=== PATIENT | female | born 1995 | race Two or more races ===

== ENCOUNTER 2022-07-31 12:47 | Outpatient (CLI) | payer OTHER | END 2022-07-31 14:00 | disposition home or self-care (01) | LOC: PRENATAL 12:47 | PROVIDERS: ATTEND Obstetrics & Gynecology Maternal & Fetal Medicine | DX: Z76.1 Encounter for health supervision and care of foundling (principal) ==

== ENCOUNTER 2022-08-29 09:15 | Outpatient (CLI) | payer OTHER | END 2022-08-29 11:02 | disposition home or self-care (01) | LOC: PRENATAL 09:15 | PROVIDERS: ATTEND Obstetrics & Gynecology Maternal & Fetal Medicine | DX: O35.9XX0 Maternal care for (suspected) fetal abnormality and damage, unspecified, not applicable or unspecified (principal); O35.3XX0 Maternal care for (suspected) damage to fetus from viral disease in mother, not applicable or unspecified ==

== ENCOUNTER 2023-01-10 01:21 | Inpatient (IN) | payer OTHER ==
[~2023-01-10] VITALS: Ht 152.4 cm; Wt 67.1 kg
[~2023-01-10 01:21] MED LIST: PRENATAL TABLE1 EAC4 PO; PROBIOTIC1 EAC4; VITAMIN C100 MG PO
== END 2023-01-12 14:15 | disposition home or self-care (01) | DRG 805 ==
LOC: LDR 01:21 → OB/GYN 01:21 → LDR 07:27 → OB/GYN 11:07
PROVIDERS: ADMIT Obstetrics & Gynecology; ATTEND Obstetrics & Gynecology
PROC: 10E0XZZ Delivery of Products of Conception, External Approach (ICD-10-PCS; principal; 2023-01-10)
PROC: 0HQ9XZZ Repair Perineum Skin, External Approach (ICD-10-PCS; 2023-01-10)
PROC: 4A1HXCZ Monitoring of Products of Conception, Cardiac Rate, External Approach (ICD-10-PCS; 2023-01-10)
DX: O70.0 First degree perineal laceration during delivery (principal); U07.1 COVID-19; Z37.0 Single live birth; O98.52 Other viral diseases complicating childbirth; Z3A.39 39 weeks gestation of pregnancy; Z20.822 Contact with and (suspected) exposure to COVID-19